=== PATIENT | male | born 1995 | race Hispanic/Latino ===

== ENCOUNTER 2025-03-01 18:56 | Emergency (ER) | payer BC ==
[~2025-03-01] VITALS: Ht 182.9 cm; Wt 99.8 kg
[2025-03-01] MEDS ORDERED: LIDOCAINE 1%-EPI 1:100,000 20 ML VIAL IJ ONE (19:30)
[2025-03-01] MEDS: LIDOCAINE HCL 1% 20 ML VIAL INJ ONE (19:37)
[2025-03-01] MEDS: NEOMY SULF/BACITRA/POLYMYXIN B 1 EACH PACKET TP ONE (19:37)
[2025-03-01] MEDS: teTANUS/diphthERIA TOXOID [ADULT] 0.5 ML VIAL IM ONE (19:39)
--- NOTE | 2025-03-01 20:15 | HMCIMG ---
Exam Type: FINGER(S) 2+VWS LT Clinical Information: inury Comparison: None Findings: The bone examination is unremarkable. No fractures or dislocations are seen. No radiopaque foreign bodies are noted. Soft tissues are preserved. IMPRESSION: Normal examination.
[2025-03-01] MEDS ORDERED: CEPH500B PO (20:24)
--- NOTE | 2025-03-01 20:25 | ERN ---
ED Note History of Present Illness Stated Complaint: CUT FINGER WITH AC UNIT Chief Complaint: Laceration/Avulsion Time Seen by MD: 18:57 Time Seen by Midlevel: 18:57 Dictation: The patient is a 29-year-old male with a history of WPW, cardiac ablation who presents to the emergency department with complaints of laceration to left index finger when he put his finger inside and AC unit fan onset 30 minutes prior to arrival. Patient does not recall tetanus. Allergies: Coded Allergies: No Known Allergies (Unverified Allergy, Unknown, 03/01/25) Past Medical History Past Medical History: Heart Disease, Other Additional Past Medical Hx: JACOB PARKINSON WHITE Surgical History: Other Surgical History Other: CARDIAC ABLATION RN Note Reviewed/Agreed w/PFSH: Yes Review of System Dictation Constitutional: Negative for fever,chills, and weight loss Eyes: Negative for injury, pain,redness, and discharge ENT: Negative for injury,pain or swelling Cardiovascular: Negative for chest pain, palpitations, and edema Respiratory: Negative for shortness of breath, cough, and wheezing, Abdomen/GI: Negative for abdominal pain, nausea, vomiting, diarrhea, and constipation Back: Negative for injury and pain : Negative for injury, bleeding and discharge MS/Extremity: Negative for deformity positive for right finger injury 2nd digit Skin: Positive for laceration Neuro: Negative for headache, weakness, numbness, tingling, and seizure Psych: Negative for suicide ideation, homicidal ideation, and hallucinations Initial Vital Sign VS Vital Signs Date Time Temp Pulse Resp B/P (MAP) Pulse Ox O2 Delivery O2 Flow Rate FiO2 03/01/25 18:57 97.9 55 16 100/56 99 Room Air 0 03/01/25 19:09 21 Physical Exam Dictation Vital Signs reviewed General Appearance: Alert, oriented x 3, no acute distress, well developed, nourished. Head and Face: non-traumatic. Eyes: PERRL, pink conjunctivas, eyelid no trauma, anterior chamber with arcus senilis. Ears: Pinnas intact and no signs of trauma or erythema ear canals clear and no discharge TM no erythema Nose: No discharge, no bleeding. Oropharynx: Mouth normal, tongue pink. pharynx clear,no erythema, tonsils no exudates, no abscesses noted, mucous membrane moist Neck: Supple, non-tender, no thyromegaly, no masses, no JVD, no bruits Breast:Deferred Chest:No tenderness, no crepitus, no paradoxical movement, no retractions Lungs:Clear, well-ventilated, symmetric, no rales, no wheezing, no rhonchi, no stridor, good breath sounds bilaterally Heart: Regular rate, regular rhythm, no murmur, no gallops Vascular: no peripheral edema, Abdomen: Soft, positive bowel sounds, nondistended, no guarding, nontender, no rebound, no masses no hepatomegaly, no splenomegaly, no Gil's sign, no hernias. Rectal: Deferred Genital: Deferred Neurological: Normal speech, motor function intact, sensory function intact Musculoskeletal: Neck nontender, full range of motion, back nontender, full range of motion, Extremities: nontender, full range of motion Skin: Color pink, dry, no turgor, no rash, no abrasions, no contusions. 2 cm laceration to distal dorsal left 2nd digit, active bleeding, Lymphatic: Deferred Results (Laboratory/Radiology) Labs Reviewed?: Yes ED Course ED Course Orders Procedure Category Date Status Time Finger(S) 2+Vws Lt RAD 03/01/25 Resulted 19:16 Tetanus,Diphtheria PHA 03/01/25 Complete Tox [Adult] (Diphther 19:30 I&D Set Up Bedside CPOE 03/01/25 Transmitted (Er) 19:16 Neomy PHA 03/01/25 Complete Sulf/Bacitra/Polymyxin 19:30 Lidocaine Hcl 1% 20ml PHA 03/01/25 Complete Vial (Lidocaine Hc 19:30 Current Medications Medications (Trade) Dose Ordered Sig/Suzan Route PRN Reason Start Time Stop Time Status Last Admin Dose Admin Lidocaine HCl (Lidocaine HCl 1% 20ml Vial) 10 ml ONCE ONCE INJ 03/01/25 19:30 03/01/25 19:31 DC 03/01/25 19:37 Lidocaine/ Epinephrine (Lidocaine 1%-Epi 1:100,000) 20 ml ONCE ONCE IJ 03/01/25 19:30 03/01/25 19:31 DC Neomycin/ Polymyxin/ Bacitracin (Triple Antibiotic Ointment) 1 appl ONCE ONCE TP 03/01/25 19:30 03/01/25 19:31 DC 03/01/25 19:37 Tetanus/ Diphtheria Toxoids Adsorbed (DiphthERIA-teTANUS TOXOID [ADULT]/ DECAVAC) 0.5 ml ONCE ONCE IM 03/01/25 19:30 03/01/25 19:31 DC 03/01/25 19:39 Vital Signs Date Time Temp Pulse Resp B/P (MAP) Pulse Ox O2 Delivery O2 Flow Rate FiO2 03/01/25 19:09 97.9 55 16 100/56 98 Room Air* 0 21 03/01/25 18:57 97.9 55 16 100/56 99 Room Air 0 Medical Decision Making MDM The patient is a 29-year-old male with a history of WPW, cardiac ablation who presents to the emergency department with complaints of laceration to left index finger when he put his finger inside and AC unit fan onset 30 minutes prior to arrival. Patient does not recall tetanus. X-ray showed no acute fractures. Patient's laceration was repaired. Patient tolerated well. Wound was cleaned. Patient instructed to follow up with PCP. Differential diagnosis: Laceration, finger fracture, avulsion Need for hospitalization: Patient does not meet criteria for hospitalization. There are no social concerns with this patient. Procedure Wound Location: upper extremity Wound's Depth, Shape: superficial Wound Explored: clean Betadine Prep?: Yes Anesthesia: 1% Lidocaine Wound Debrided: minimal Suture Size/Type: 3:0, nylon Number of Sutures: 5 DX & DISP Disposition: Discharge Departure Impression: Primary Impression: Laceration of left index finger Condition: Stable Scripts Cephalexin Monohydrate (Keflex) 500 Mg Cap 500 MG PO QID for 7 Days, #28 CAP Prov: SOL NUNEZ MASON TENDER 03/01/25 Additional Instructions: Keep your stitches clean and dry. Do not put your stitches under water, such as in a bath, pool, or greco. This can slow healing and raise your chance of getting an infection. Avoid activities or sports that could hurt the area of your stitches for 1-2 weeks. You should call your doctor if you develop any fever, redness or swelling around the cut, or pus draining from the cut. Your sutures will need to be removed in 10-14 days. FOLLOW-UP WITH PRIMARY CARE PROVIDER IN 1 TO 2 DAYS. TAKE MEDICATIONS DIRECTED HERE IN THE EMERGENCY ROOM. OKAY TO CONTINUE HOME MEDICATIONS UNLESS OTHERWISE DISCUSSED DURING YOUR VISIT IN THE EMERGENCY ROOM TODAY. RETURN TO YOUR NEAREST EMERGENCY ROOM IF SYMPTOMS WORSEN OR IF THERE IS NO IMPROVEMENT. CALL 911 IF YOU NEED IMMEDIATE ASSISTANCE. TAKE TYLENOL OR MOTRIN [id number] NEEDED AND IF NO CONTRAINDICATIONS ARE PRESENT. INCREASE ORAL HYDRATION. A WOUND CULTURE OR URINE CULTURE WAS ORDERED HERE IN THE EMERGENCY ROOM DEPARTMENT PLEASE FOLLOW-UP WITH PRIMARY CARE PROVIDER AND ADVISE THEM TO GET REPEAT PORTS FROM OUR FACILITY. IF YOU HAD ANY FELIX WRAP/SPLINTS THAT WERE APPLIED HERE, PLEASE DO NOT REMOVE THEM UNTIL YOU SEE YOUR PRIMARY CARE OR SPECIALTY. Referrals: HOLLY ARCEO MD (PCP) Time of Disposition: 20:21 I have reviewed the case, and I agree with, Diagnosis and Plan SOL NUNEZ [facility] March 01, 2025 20:25
[2025-03-01 20:36] VITALS: BP 115/62; PULSE 61; RESP 16; TEMP 97.9; O2SAT 99
== END 2025-03-01 20:37 | disposition home or self-care (01) ==
LOC: EDH 18:56
DX: S61.211A Laceration without foreign body of left index finger without damage to nail, initial encounter (principal); W45.8XXA Other foreign body or object entering through skin, initial encounter; Y93.89 Activity, other specified; Y92.89 Other specified places as the place of occurrence of the external cause; Y99.8 Other external cause status
CPT/HCPCS: 12001; 73140; 90471; 90714; 99284